=== PATIENT | male | born 1995 | race Hispanic/Latino ===

== ENCOUNTER 2018-01-03 16:55 | Emergency (ER) | payer BC, SELFPAY | END 2018-01-03 18:46 | disposition home or self-care (01) | LOC: ERS 16:55 | DX: J01.90 Acute sinusitis, unspecified (principal); I10 Essential (primary) hypertension | CPT/HCPCS: 99282 ==

== ENCOUNTER 2018-08-06 09:16 | Emergency (ER) | payer BC, SELFPAY ==
[2018-08-06] MEDS ORDERED: Mag-Al 1200 mg/1200 mg/30 ML UDCUP ONE (09:39)
[2018-08-06] MEDS ORDERED: Ondansetron PF 4 MG/2 ML Vial ONE (09:39)
[2018-08-06] MEDS ORDERED: Lidocaine Viscous Sol 2% 15 ml UD Cup ONE (09:39)
[2018-08-06] MEDS ORDERED: Dicyclomine 20 MG TAB ONE (09:39)
[2018-08-06] MEDS ORDERED: Pantoprazole 40 MG VIAL ONE (09:39)
[2018-08-06 10:22] LABS: #Basophils 0.1 thou/uL (0.0-0.2); #Eosinphils 0.2 thou/uL (0.0-0.7); #Lymphocytes 1.7 thou/uL (1.20-3.40); #Monocytes 0.8 thou/uL (0.11-0.59); #Neutrophils 8.6 thou/uL (1.40-6.50); %Basophils 0.6 % (0.0-1.0); %Eosinophils 1.5 % (0.0-10.0); %Lymphocytes 15.1 % (21.0-51.0); %Monocytes 7.3 % (0.0-10.0); %Neutrophils 75.5 % (42.0-75.0); Hemoglobin 16.9 g/dL (14.0-18.0); Mean Corpuscular HGB CONC 32.8 g/dL (32.0-36.0); Mean Corpuscular Hemoglobin 28.2 pg (27.0-31.0); Mean Corpuscular Volume 85.9 fL (78.0-98.0); Mean Platelet Volume 8.4 fL (7.4-10.4); Platelet Count 251 thou/uL (130-400); RBC Distribution Width 13.6 % (11.5-14.5); Red Blood Cell (RBC) Count 5.99 mill/uL (4.70-6.10); White Blood Cell (WBC) Count 11.4 thou/uL (4.8-10.8)
[2018-08-06 10:36] LABS: ALT (SGPT) 20 U/L (8-55); AST (SGOT) 25 U/L (5-34); Albumin 4.8 g/dL (3.5-5.0); Alkaline Phosphatase 150 U/L (40-150); Anion Gap 18 mmol/L (10-20); BUN (Urea Nitrogen) 17 mg/dL (8.9-20.6); Bilirubin, Total 0.4 mg/dL (0.2-1.2); Calc. Creatinine Clearance 0 mL/min (70-130); Calcium 9.7 mg/dL (7.8-10.44); Carbon Dioxide 14 mmol/L (22-29); Chloride 109 mmol/L (98-107); Estimated GFR-MDRD Greater than 90; Globulin 3.4 g/dL (2.4-3.5); Glucose 90 mg/dL (70-105); Lipase 15 U/L (8-78); Potassium 4.7 mmol/L (3.5-5.1); Protein, Total 8.2 g/dL (6.0-8.3); Sodium 136 mmol/L (136-145)
== END 2018-08-06 11:34 | disposition home or self-care (01) ==
LOC: ERS 09:16
DX: R11.2 Nausea with vomiting, unspecified (principal); R19.7 Diarrhea, unspecified; I10 Essential (primary) hypertension
CPT/HCPCS: 80053; 83690; 85025; 96361; 96374; 96375; C9113; J2405

== ENCOUNTER 2018-10-14 18:04 | Emergency (ER) | payer SELFPAY ==
--- NOTE | 2018-10-14 19:13 | RAD ---
RIGHT HAND: 10/14/18 Three views. HISTORY: Hand pain. Carpals appear normally aligned. Metacarpals and phalanges are intact and appear unremarkable. IMPRESSION: No acute findings. POS: AGW
[2018-10-14] MEDS ORDERED: Lidocaine 1% w/Epinephrine 1:100K 20 ML VIAL ONE (19:32)
[2018-10-14] MEDS ORDERED: Adacel (T-DAP) 0.5 ML SYRINGE ONE (20:23)
== END 2018-10-14 20:35 | disposition home or self-care (01) ==
LOC: ERS 18:04
DX: S61.411A Laceration without foreign body of right hand, initial encounter (principal); I10 Essential (primary) hypertension; Z23 Encounter for immunization; W25.XXXA Contact with sharp glass, initial encounter
CPT/HCPCS: 12001; 90471; 90715; J2001

== ENCOUNTER 2018-10-24 19:11 | Emergency (ER) | payer SELFPAY ==
[2018-10-24] MEDS ORDERED: Bacitracin Zinc 1 Packet ONE (19:45)
== END 2018-10-24 19:50 | disposition home or self-care (01) ==
LOC: ERS 19:11
DX: S61.411D Laceration without foreign body of right hand, subsequent encounter (principal); I10 Essential (primary) hypertension

== ENCOUNTER 2019-03-05 16:03 | Emergency (ER) | payer SELFPAY ==
[2019-03-05 16:30] LABS: #Basophils 0.1 thou/uL (0.0-0.2); #Eosinphils 0.1 thou/uL (0.0-0.7); #Lymphocytes 2.2 thou/uL (1.20-3.40); #Monocytes 0.9 thou/uL (0.11-0.59); #Neutrophils 8.3 thou/uL (1.40-6.50); %Basophils 0.7 % (0.0-1.0); %Eosinophils 1.2 % (0.0-10.0); %Lymphocytes 18.9 % (21.0-51.0); %Monocytes 7.7 % (0.0-10.0); %Neutrophils 71.5 % (42.0-75.0); Mean Corpuscular HGB CONC 34.2 g/dL (32.0-36.0); Mean Corpuscular Hemoglobin 28.9 pg (27.0-31.0); Mean Corpuscular Volume 84.4 fL (78.0-98.0); Mean Platelet Volume 8.3 fL (7.4-10.4); Platelet Count 241 thou/uL (130-400); RBC Distribution Width 13.3 % (11.5-14.5); Red Blood Cell (RBC) Count 5.56 mill/uL (4.70-6.10); White Blood Cell (WBC) Count 11.6 thou/uL (4.8-10.8)
[2019-03-05] MEDS ORDERED: Ondansetron PF 4 MG/2 ML Vial ONE (16:32)
[2019-03-05 16:52] LABS: ALT (SGPT) 34 U/L (8-55); AST (SGOT) 26 U/L (5-34); Albumin 4.8 g/dL (3.5-5.0); Alkaline Phosphatase 138 U/L (40-150); Anion Gap 10 mmol/L (10-20); BUN (Urea Nitrogen) 10 mg/dL (8.9-20.6); Bilirubin, Total 0.4 mg/dL (0.2-1.2); Calc. Creatinine Clearance 0 mL/min (70-130); Calcium 9.5 mg/dL (7.8-10.44); Carbon Dioxide 24 mmol/L (22-29); Chloride 106 mmol/L (98-107); Estimated GFR-MDRD Greater than 90; Glucose 102 mg/dL (70-105); Lipase 11 U/L (8-78); Potassium 3.9 mmol/L (3.5-5.1); Protein, Total 7.8 g/dL (6.0-8.3); Sodium 136 mmol/L (136-145)
[2019-03-05] MEDS ORDERED: Ketorolac Tromethamine 30 MG/ML VIAL ONE (18:28)
[2019-03-05 18:47] LABS: Bilirubin Negative (Negative); Blood, Urine 3+ (Negative); Clarity Clear (Clear); Glucose, Urine (Dipstick) Normal (Negative); Leukocyte Negative Leu/uL (Negative); Nitrite Negative (Negative); Protein, Urine (Dipstick) 10 mg/dL (Neg-Trace); RBC/HPF Greater than 50 HPF (0-3); Squamous Epithelial None Seen HPF (0-3); Urobilinogen Normal mg/dL (Less than 2); WBC/HPF 0-3 HPF (0-3)
--- NOTE | 2019-03-05 18:52 | CT ---
CT Stone Protocol: 03/05/2019 6:26 PM HISTORY: Left lower quadrant abdominal pain and left flank pain COMPARISON: None. TECHNIQUE: Multiple contiguous axial images were obtained and a CT of the abdomen and pelvis without IV contrast . Coronal and sagittal reformats were performed. FINDINGS: This examination is limited for the evaluation of solid organs and vascular structures due to the lac k of intravenous contrast. Lower Chest: within normal limits. Abdomen: Liver: within normal limits. Bile Ducts: Normal caliber. Gallbladder: No calcified gallstones. Normal caliber wall. Pancreas: within normal limits. Spleen: within normal limits. Adrenals: within normal limits. Kidneys: Mild left hydronephrosis. Pelvis: Reproductive Organs: No pelvic masses. Ureters: 3 mm left distal ureteral calcification with mild left hydroureter Bladder: within normal limits. Bowel: Normal caliber. Surgical clips near the cecum are likely from prior appendectomy. Mesenteric Lymph Nodes: No enlarged mesenteric lymph nodes. Peritoneum: No ascites or free air, no fluid collection. Vessels: Normal caliber aorta Retroperitoneum: within normal limits. Abdominal Wall: within normal limits. Bones: Unremarkable. IMPRESSION: Left distal ureteral calcification with mild left hydronephrosis
[2019-03-05 18:53] LABS: Bacteria/HPF 1+ HPF (None Seen)
== END 2019-03-05 19:51 | disposition home or self-care (01) ==
LOC: ERS 16:03
DX: N13.2 Hydronephrosis with renal and ureteral calculous obstruction (principal)
CPT/HCPCS: 36415; 74176; 80053; 81003; 81015; 83690; 85025; 87086; 96361; 96374; 96375; J1885; J2405

== ENCOUNTER 2020-04-04 19:15 | Inpatient (IN) | payer OTHER, SELFPAY ==
[~2020-04-04 19:15] MED LIST: Dexamethasone 20 MG/5 ML VIAL ONE; Ketorolac Tromethamine 30 MG/ML VIAL ONE; Ondansetron PF 4 MG/2 ML Vial ONE; PROPOFOL 200 MG/20 ML VIAL ONE; Succinylcholine Chloride 20 MG/ML 10 ml SYRINGE FS ONE
[2020-04-04] MEDS ORDERED: Boostrix 0.5 ML VIAL ONE (19:19)
[2020-04-04] MEDS ORDERED: Ketamine 50 MG/ML (10ML VIAL) ONE (19:24)
[2020-04-04] MEDS ORDERED: Piperacillin/Tazobactam 4.5 GM VIAL ONE (19:24)
[2020-04-04] MEDS ORDERED: Heparin 10,000 UNITS/ 10 ML VIAL ONE (19:25)
[2020-04-04 19:31] LABS: #Basophils 0.1 thou/uL (0.0-0.2); #Eosinphils 0.2 thou/uL (0.0-0.7); #Lymphocytes 3.9 thou/uL (1.20-3.40); #Monocytes 0.9 thou/uL (0.11-0.59); #Neutrophils 7.4 thou/uL (1.40-6.50); %Basophils 0.7 % (0.0-1.0); %Eosinophils 1.4 % (0.0-10.0); %Lymphocytes 31.2 % (21.0-51.0); %Monocytes 7.2 % (0.0-10.0); %Neutrophils 59.5 % (42.0-75.0); Hemoglobin 15.7 g/dL (14.0-18.0); Mean Corpuscular Hemoglobin 28.1 pg (27.0-31.0); Mean Corpuscular Volume 82.5 fL (78.0-98.0); Mean Platelet Volume 8.2 fL (7.4-10.4); Platelet Count 296 thou/uL (130-400); RBC Distribution Width 13.8 % (11.5-14.5); Red Blood Cell (RBC) Count 5.61 mill/uL (4.70-6.10); White Blood Cell (WBC) Count 12.4 thou/uL (4.8-10.8)
[2020-04-04 19:39] LABS: INR-International Normal Ratio 0.9; Prothrombin Time 12.8 sec (12.0-14.7)
[2020-04-04 19:41] LABS: Lactic Acid 3.1 mmol/L (0.5-2.2)
[2020-04-04 19:45] LABS: ALT (SGPT) 46 U/L (8-55); AST (SGOT) 32 U/L (5-34); Albumin 4.6 g/dL (3.5-5.0); Alkaline Phosphatase 142 U/L (40-110); Anion Gap 14 mmol/L (10-20); BUN (Urea Nitrogen) 14 mg/dL (8.9-20.6); Bilirubin, Total 0.5 mg/dL (0.2-1.2); Calc. Creatinine Clearance 0 mL/min (70-130); Calcium 9.5 mg/dL (7.8-10.44); Carbon Dioxide 24 mmol/L (22-29); Chloride 109 mmol/L (98-107); Estimated GFR-MDRD 70; Globulin 3.3 g/dL (2.4-3.5); Glucose 134 mg/dL (70-105); Potassium 3.9 mmol/L (3.5-5.1); Protein, Total 7.9 g/dL (6.0-8.3); Sodium 143 mmol/L (136-145)
[2020-04-04] MEDS ORDERED: Midazolam HCl 2 mg/2 ml Vial ONE (19:49)
[2020-04-04] MEDS ORDERED: Fentanyl 100 MCG/2 ML VIAL ONE ×2 (19:49→21:09)
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
[2020-04-04] MEDS ORDERED: SUGAMMADEX SODIUM 500 MG/5 ML VIAL ONE (19:56)
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
[2020-04-04] MEDS ORDERED: Zolpidem Tartrate 5 MG TAB PO PRN (20:12)
[2020-04-04] MEDS ORDERED: diphenhydrAMINE 25 MG CAP PO PRN (20:12)
[2020-04-04] MEDS ORDERED: diphenhydrAMINE 50 MG/ML VIAL IVP PRN (20:12)
[2020-04-04] MEDS ORDERED: diphenhydrAMINE 50 MG/ML VIAL IM PRN (20:12)
[2020-04-04] MEDS ORDERED: Promethazine HCl 25 MG/ML VIAL IM PRN ×2 (20:12→20:13)
[2020-04-04] MEDS ORDERED: Ondansetron PF 4 MG/2 ML Vial IVP PRN ×2 (20:12→20:29)
[2020-04-04] MEDS ORDERED: fentaNYL Citrate/PF 2,000 MCG in Sodium Chloride 0.9% 60 ML IV PRN (20:12)
[2020-04-04] MEDS ORDERED: Naloxone HCl 0.4 mg/ml Vial IV PRN (20:12)
[2020-04-04] MEDS ORDERED: Promethazine HCl 25 MG/ML VIAL SLOW IVP PRN (20:13)
[2020-04-04] MEDS ORDERED: Ondansetron HCl/PF 4 MG/2 ML Vial IVP PRN (20:13)
[2020-04-04] MEDS ORDERED: Communication Order-Pharmacy FS SCH (20:15)
[2020-04-04] MEDS ORDERED: Lorazepam 2 MG/ML VIAL SLOW IVP PRN (20:29)
[2020-04-04] MEDS ORDERED: hydrALAZINE 20 MG/ML VIAL SLOW IVP PRN (20:29)
[2020-04-04] MEDS ORDERED: Acetaminophen 500 MG TAB PO PRN (20:33)
[2020-04-04] MEDS: Lactated Ringer's 1,000 ML IV SCH (22:35)
[2020-04-05] MEDS: Famotidine 20 MG TAB PO SCH ×3 (00:19→20:17)
[2020-04-05] MEDS: Ketorolac Tromethamine 30 MG/ML VIAL IVP SCH ×3 (00:20→12:25)
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
[2020-04-05] MEDS: Lactated Ringer's 1,000 ML IV SCH ×3 (01:16→10:13)
[2020-04-05 05:29] LABS: #Eosinphils 0.1 thou/uL (0.0-0.7); #Lymphocytes 1.2 thou/uL (1.20-3.40); #Monocytes 0.9 thou/uL (0.11-0.59); #Neutrophils 14.8 thou/uL (1.40-6.50); %Basophils 0.1 % (0.0-1.0); %Eosinophils 0.5 % (0.0-10.0); %Monocytes 5.5 % (0.0-10.0); Hemoglobin 14.6 g/dL (14.0-18.0); Mean Corpuscular HGB CONC 33.1 g/dL (32.0-36.0); Mean Corpuscular Volume 84.7 fL (78.0-98.0); Mean Platelet Volume 8.3 fL (7.4-10.4); Platelet Count 224 thou/uL (130-400); Red Blood Cell (RBC) Count 5.22 mill/uL (4.70-6.10)
[2020-04-05 08:06] VITALS: BMI 39.0
[2020-04-05] MEDS: Enoxaparin Sodium 40 MG/0.4 ML SYRINGE SC SCH (10:13)
[2020-04-05] MEDS: traMADol HCl 50 MG TAB PO SCH ×2 (13:29→20:17)
[2020-04-05] MEDS ORDERED: Acetaminophen 325 MG TAB PO SCH (14:00)
[2020-04-05] MEDS ORDERED: Ibuprofen 600 MG TAB PO PRN (15:04)
[2020-04-05] MEDS ORDERED: Ketorolac Tromethamine 30 MG/ML VIAL IVP PRN (15:06)
[2020-04-05 15:47] LABS: SARS-CoV-2 MS2 Positive; SARS-CoV-2 N Gene Negative; SARS-CoV-2 S Gene Negative; SARS-CoV-2 by NAA Not Detected (NotDetected); SARS-CoV-2 orf1ab Negative
--- NOTE | 2020-04-05 16:18 | PRG ---
DATE OF SERVICE: 04/05/2020 SUBJECTIVE: Sukh Bonilla is doing well today. He is tolerating a regular diet. His pain is well controlled with his CLINICAL NURSING MANAGER. OBJECTIVE: VITAL SIGNS: Temperature 97.8 degrees, pulse 87, blood pressure 129/74. LUNGS: Clear to auscultation. CARDIAC: Regular rhythm. No murmur or gallop. ABDOMEN: Soft, nontender. Good bowel sounds. Incisional suction MONICA device in place. Drain present, PREETHI, serosanguineous output. LABORATORY DATA: His hemoglobin this morning is 14, white count 17. Basic metabolic profile normal. ASSESSMENT AND PLAN: Good activity level, tolerating his diet, would TKO his IV. We will plan to discontinue his CLINICAL NURSING MANAGER tonight and begin Motrin and tramadol. We will change his Toradol to p.r.n. Anticipate discharge home on Tuesday. He could be sent home with Tylenol, Motrin, tramadol. He can remove his MONICA suction dressing Tuesday or Tuesday. Leave the wound open, wash it with soap and water. We will continue the PREETHI drain for now, consider removing it as an outpatient. Job ID: [id number]
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
[2020-04-05] MEDS: traMADol HCl 50 MG TAB PO PRN (17:34)
[2020-04-06] MEDS: traMADol HCl 50 MG TAB PO SCH ×3 (01:56→15:28)
[2020-04-06] MEDS: Enoxaparin Sodium 40 MG/0.4 ML SYRINGE SC SCH (08:00)
[2020-04-06] MEDS: Famotidine 20 MG TAB PO SCH (08:00)
[2020-04-06] MEDS ORDERED: Ibuprofen 600 MG TAB PO SCH (12:00)
[2020-04-06] MEDS ORDERED: Acetaminophen 500 MG TAB PO SCH (12:00)
[2020-04-06 12:21] VITALS: BP 138/80; TEMP 98.1
[2020-04-06] MEDS: traMADol HCl 50 MG TAB PO PRN (12:55)
[2020-04-06] MEDS ORDERED: Gabapentin 300 MG CAP PO SCH (15:00)
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
== END 2020-04-06 15:50 | disposition home or self-care (01) | DRG 358 ==
LOC: ERS 19:15 → SDC/OP 19:40 → SJJU 20:35 → EEVIPCON 20:35
PROVIDERS: ADMIT Specialist; ATTEND Specialist
PROC: 0W9G00Z Drainage of Peritoneal Cavity with Drainage Device, Open Approach (ICD-10-PCS; principal; 2020-04-04)
PROC: 05H533Z Insertion of Infusion Device into Right Subclavian Vein, Percutaneous Approach (ICD-10-PCS; 2020-04-04)
DX: S36.99XA Other injury of unspecified intra-abdominal organ, initial encounter (principal); S41.031A Puncture wound without foreign body of right shoulder, initial encounter; W34.00XA Accidental discharge from unspecified firearms or gun, initial encounter; Z20.828 Contact with and (suspected) exposure to other viral communicable diseases; Z90.49 Acquired absence of other specified parts of digestive tract
CPT/HCPCS: 36430; 71045; 74018; 80053; 83605; 84484; 85025; 85610; 85730; 86850; 86870; 86900; 86901; 86922; 87635; 90715; 96374; 96375; G0390; J0690; J1100; J1644; J1650; J1885; J2250; J2405; J2543; J2704; J3010; U0003

== ENCOUNTER 2020-04-07 10:19 | Observation (INO) | payer SELFPAY ==
[2020-04-07] MEDS ORDERED: Iopamidol 370 76% 100 ML VIAL ONE (10:53)
[2020-04-07 10:58] LABS: #Basophils 0.1 thou/uL (0.0-0.2); #Eosinphils 0.1 thou/uL (0.0-0.7); #Monocytes 0.9 thou/uL (0.11-0.59); #Neutrophils 11.9 thou/uL (1.40-6.50); %Basophils 0.4 % (0.0-1.0); %Eosinophils 0.4 % (0.0-10.0); %Lymphocytes 7.1 % (21.0-51.0); %Monocytes 6.3 % (0.0-10.0); %Neutrophils 85.8 % (42.0-75.0); Hemoglobin 14.6 g/dL (14.0-18.0); Mean Corpuscular HGB CONC 33.8 g/dL (32.0-36.0); Mean Corpuscular Hemoglobin 27.9 pg (27.0-31.0); Mean Corpuscular Volume 82.6 fL (78.0-98.0); Mean Platelet Volume 7.9 fL (7.4-10.4); Platelet Count 290 thou/uL (130-400); RBC Distribution Width 13.7 % (11.5-14.5); Red Blood Cell (RBC) Count 5.23 mill/uL (4.70-6.10); White Blood Cell (WBC) Count 13.9 thou/uL (4.8-10.8)
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
[2020-04-07] MEDS ORDERED: Morphine 4 MG/ML VIAL ONE (11:10)
[2020-04-07] MEDS ORDERED: Ondansetron PF 4 MG/2 ML Vial ONE (11:27)
[2020-04-07 11:36] LABS: ALT (SGPT) 33 U/L (8-55); AST (SGOT) 40 U/L (5-34); Albumin 3.9 g/dL (3.5-5.0); Alkaline Phosphatase 109 U/L (40-110); Anion Gap 13 mmol/L (10-20); BUN (Urea Nitrogen) 15 mg/dL (8.9-20.6); Bilirubin, Total 0.6 mg/dL (0.2-1.2); Calc. Creatinine Clearance 0 mL/min (70-130); Carbon Dioxide 24 mmol/L (22-29); Chloride 104 mmol/L (98-107); Estimated GFR-MDRD Greater than 90; Globulin 3.4 g/dL (2.4-3.5); Glucose 134 mg/dL (70-105); Lipase 9 U/L (8-78); Potassium 4.3 mmol/L (3.5-5.1); Protein, Total 7.3 g/dL (6.0-8.3); Sodium 137 mmol/L (136-145)
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
[2020-04-07] MEDS ORDERED: Ketorolac Tromethamine 30 MG/ML VIAL ONE (13:16)
[2020-04-07] MEDS ORDERED: Dextrose 5% in Water 1,000 ML IV PRN (13:21)
[2020-04-07] MEDS ORDERED: Cyclobenzaprine 10 MG TAB PO PRN (13:21)
[2020-04-07] MEDS ORDERED: Ondansetron PF 4 MG/2 ML Vial IVP PRN (13:21)
[2020-04-07] MEDS ORDERED: Dextrose 50% Abboject 50 ML SYRINGE SLOW IVP PRN (13:21)
[2020-04-07] MEDS ORDERED: Ibuprofen 600 MG TAB PO PRN (13:21)
[2020-04-07] MEDS: Ondansetron ODT 4 MG TAB PO PRN (17:14)
[2020-04-07] MEDS: Sodium Chloride 0.9% 1,000 ML IV SCH ×2 (17:15→23:51)
[2020-04-07] MEDS: traMADol HCl 50 MG TAB PO SCH ×2 (18:23→23:51)
[2020-04-07] MEDS: Acetaminophen 500 MG TAB PO SCH ×2 (18:23→23:51)
[2020-04-07] MEDS: Famotidine 20 MG TAB PO SCH (20:47)
[2020-04-08] MEDS: Acetaminophen 500 MG TAB PO SCH ×2 (05:37→11:46)
[2020-04-08] MEDS: traMADol HCl 50 MG TAB PO SCH ×2 (05:38→11:44)
[2020-04-08] MEDS: Ondansetron ODT 4 MG TAB PO PRN (05:39)
[2020-04-08] MEDS: Famotidine 20 MG TAB PO SCH (09:05)
[2020-04-08 09:24] LABS: #Eosinphils 0.6 thou/uL (0.0-0.7); #Lymphocytes 1.7 thou/uL (1.20-3.40); #Monocytes 0.8 thou/uL (0.11-0.59); #Neutrophils 5.9 thou/uL (1.40-6.50); %Basophils 0.5 % (0.0-1.0); %Eosinophils 6.3 % (0.0-10.0); %Lymphocytes 18.8 % (21.0-51.0); %Neutrophils 65.4 % (42.0-75.0); Hemoglobin 12.9 g/dL (14.0-18.0); Mean Corpuscular HGB CONC 33.6 g/dL (32.0-36.0); Mean Corpuscular Hemoglobin 28.1 pg (27.0-31.0); Mean Corpuscular Volume 83.6 fL (78.0-98.0); Mean Platelet Volume 9.2 fL (7.4-10.4); Platelet Count 211 thou/uL (130-400); RBC Distribution Width 13.8 % (11.5-14.5); Red Blood Cell (RBC) Count 4.57 mill/uL (4.70-6.10)
[2020-04-08 09:41] LABS: Anion Gap 15 mmol/L (10-20); BUN (Urea Nitrogen) 18 mg/dL (8.9-20.6); Calc. Creatinine Clearance 190 mL/min (70-130); Calcium 8.4 mg/dL (7.8-10.44); Carbon Dioxide 19 mmol/L (22-29); Chloride 111 mmol/L (98-107); Estimated GFR-MDRD Greater than 90; Glucose 84 mg/dL (70-105); Potassium 5.9 mmol/L (3.5-5.1); Sodium 139 mmol/L (136-145)
[2020-04-08] MEDS ORDERED: Acetaminophen/Codeine 30-300mg Tablet PO PRN (15:51)
[2020-04-08 16:10] VITALS: BP 166/98; TEMP 97.7
== END 2020-04-08 16:36 | disposition home or self-care (01) ==
LOC: ERS 10:19 → SURG B 14:28
PROVIDERS: ADMIT Surgery; ATTEND Surgery
DX: K56.7 Ileus, unspecified (principal); G89.18 Other acute postprocedural pain; K56.609 Unspecified intestinal obstruction, unspecified as to partial versus complete obstruction
CPT/HCPCS: 36415; 71045; 74177; 80048; 80053; 83690; 85025; 96361; 96374; 96375; G0378; J1885; J2270; J2405; Q0162; Q9967

== ENCOUNTER 2020-04-16 00:52 | Emergency (ER) | payer OTHER, SELFPAY | END 2020-04-16 03:04 | disposition home or self-care (01) | LOC: ERS 00:52 | DX: T81.31XA Disruption of external operation (surgical) wound, not elsewhere classified, initial encounter (principal); Z87.442 Personal history of urinary calculi | CPT/HCPCS: 12001 ==

== ENCOUNTER 2020-04-21 11:56 | Emergency (ER) | payer OTHER ==
[2020-04-21] MEDS ORDERED: Iopamidol-370 76% 500 ML 1 ML ONE (13:50)
[2020-04-21 14:03] LABS: #Basophils 0.1 thou/uL (0.0-0.2); #Eosinphils 0.3 thou/uL (0.0-0.7); #Lymphocytes 1.9 thou/uL (1.20-3.40); #Monocytes 0.8 thou/uL (0.11-0.59); #Neutrophils 6.4 thou/uL (1.40-6.50); %Basophils 0.7 % (0.0-1.0); %Eosinophils 3.2 % (0.0-10.0); %Lymphocytes 19.8 % (21.0-51.0); %Monocytes 8.5 % (0.0-10.0); %Neutrophils 67.8 % (42.0-75.0); Hemoglobin 14.2 g/dL (14.0-18.0); Mean Corpuscular Hemoglobin 28.1 pg (27.0-31.0); Mean Corpuscular Volume 82.6 fL (78.0-98.0); Mean Platelet Volume 7.8 fL (7.4-10.4); Platelet Count 343 thou/uL (130-400); RBC Distribution Width 13.7 % (11.5-14.5); Red Blood Cell (RBC) Count 5.04 mill/uL (4.70-6.10); White Blood Cell (WBC) Count 9.5 thou/uL (4.8-10.8)
[2020-04-21 14:26] LABS: ALT (SGPT) 27 U/L (8-55); AST (SGOT) 18 U/L (5-34); Albumin 4.3 g/dL (3.5-5.0); Alkaline Phosphatase 138 U/L (40-110); Anion Gap 15 mmol/L (10-20); BUN (Urea Nitrogen) 13 mg/dL (8.9-20.6); Bilirubin, Total 0.4 mg/dL (0.2-1.2); Calc. Creatinine Clearance 0 mL/min (70-130); Calcium 9.8 mg/dL (7.8-10.44); Carbon Dioxide 25 mmol/L (22-29); Chloride 104 mmol/L (98-107); Estimated GFR-MDRD Greater than 90; Globulin 3.6 g/dL (2.4-3.5); Glucose 82 mg/dL (70-105); Potassium 4.2 mmol/L (3.5-5.1); Protein, Total 7.9 g/dL (6.0-8.3); Sodium 140 mmol/L (136-145)
[2020-04-21] MEDS ORDERED: Ondansetron PF 4 MG/2 ML Vial ONE (14:35)
[2020-04-21] MEDS ORDERED: Acetaminophen 500 MG TAB ONE (14:36)
--- NOTE | 2020-04-21 15:54 | CT ---
CT PULMONARY ANGIOGRAM WITH IV CONTRAST AND 3D POSTPROCESSING: Date: 04/21/2020 HISTORY: Shortness of breath and chest pain. Recent surgery. FINDINGS: No filling defects are seen in the pulmonary arterial vasculature to suggest pulmonary embolism. The thoracic aorta is opacified without aneurysm or dissection. No pleural or pericardial effusions are s een. No pneumothoraces, focal areas of consolidation, lung nodules, or masses are seen. The bony stru ctures are unremarkable. IMPRESSION: No CT evidence of pulmonary embolism. POS: AH
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
== END 2020-04-21 17:22 | disposition home or self-care (01) ==
LOC: ERS 11:56
DX: R07.89 Other chest pain (principal)
CPT/HCPCS: 36415; 71275; 74177; 80053; 83880; 84484; 85025; 93005; 96374; J2405; Q9967

== ENCOUNTER 2021-05-15 23:48 | Emergency (ER) | payer SELFPAY ==
[2021-05-16 02:26] LABS: Actual Bicarbonate (HCO3v) 20 mEq/L (22-28); Base Excess -1.6 mEq/L (-2.0 to +3.0); pH (venous) 7.48 (7.32-7.43)
[2021-05-16 02:27] LABS: Hemoglobin (Hb) 15.2 g/dL (13.2-17.3)
[2021-05-16 02:28] LABS: Chloride (VBG) 104 mmol/L (98-106); Potassium (VBG) 6.01 mmol/L (3.70-5.30); Sodium 132.5 mmol/L (133-146)
[2021-05-16 02:31] LABS: #Eosinphils 0.1 thou/uL (0.0-0.7); #Lymphocytes 1.6 thou/uL (1.20-3.40); #Monocytes 0.9 thou/uL (0.11-0.59); #Neutrophils 4.1 thou/uL (1.40-6.50); %Basophils 0.5 % (0.0-1.0); %Eosinophils 1.9 % (0.0-10.0); %Lymphocytes 24.3 % (21.0-51.0); %Monocytes 12.5 % (0.0-10.0); %Neutrophils 60.7 % (42.0-75.0); Hemoglobin 14.2 g/dL (14.0-18.0); Mean Corpuscular HGB CONC 33.6 g/dL (32.0-36.0); Mean Corpuscular Hemoglobin 27.5 pg (27.0-31.0); Mean Corpuscular Volume 81.9 fL (78.0-98.0); Mean Platelet Volume 8.8 fL (7.4-10.4); Platelet Count 204 thou/uL (130-400); RBC Distribution Width 13.9 % (11.5-14.5); Red Blood Cell (RBC) Count 5.18 mill/uL (4.70-6.10); White Blood Cell (WBC) Count 6.8 thou/uL (4.8-10.8)
[2021-05-16 02:37] LABS: ALT (SGPT) 38 U/L (8-55); AST (SGOT) 27 U/L (5-34); Albumin 3.6 g/dL (3.5-5.0); Alkaline Phosphatase 147 U/L (40-110); Anion Gap 10 mmol/L (10-20); BUN (Urea Nitrogen) 10 mg/dL (8.9-20.6); Bilirubin, Total 0.2 mg/dL (0.2-1.2); Calc. Creatinine Clearance 0 mL/min (70-130); Calcium 9.1 mg/dL (7.8-10.44); Carbon Dioxide 23 mmol/L (22-29); Chloride 105 mmol/L (98-107); Globulin 3.7 g/dL (2.4-3.5); Glucose 162 mg/dL (70-105); Potassium 3.8 mmol/L (3.5-5.1); Protein, Total 7.3 g/dL (6.0-8.3); Sodium 134 mmol/L (136-145)
[2021-05-16 03:28] LABS: SARS-CoV-2 NAA Rapid Test Not Detected (NotDetected)
== END 2021-05-16 03:49 | disposition home or self-care (01) ==
LOC: ERS 23:48
DX: J06.9 Acute upper respiratory infection, unspecified (principal); R00.0 Tachycardia, unspecified; I51.7 Cardiomegaly; E11.9 Type 2 diabetes mellitus without complications; Z20.822 Contact with and (suspected) exposure to COVID-19; Z79.84 Long term (current) use of oral hypoglycemic drugs; Z79.899 Other long term (current) drug therapy
CPT/HCPCS: 0240U; 71045; 80053; 82805; 83605; 84484; 85025; 85379; 93005

== ENCOUNTER 2021-11-24 13:52 | Emergency (ER) | payer SELFPAY | END 2021-11-24 16:12 | disposition home or self-care (01) | LOC: ERS 13:52 | DX: U07.1 COVID-19 (principal); E11.9 Type 2 diabetes mellitus without complications; Z79.84 Long term (current) use of oral hypoglycemic drugs | CPT/HCPCS: 87804; 99283; U0003; U0005 ==